=== PATIENT | male | born 1990 | race Caucasian/White ===

== ENCOUNTER 2018-02-17 00:13 | Emergency (ER) | payer BC ==
[2018-02-17 00:29] VITALS: BP 151/88; PULSE 78; RESP 20; TEMP 98.5; O2SAT 97
--- NOTE | 2018-02-17 00:47 | C.PDOC ---
History Of Present Illness 27 y/o male c/o right ear pain that started a few hours ago, pt used otc drops in ear and took one tab otc advil with no relief. no cough, fever, chills, throat pain. no discharge from ear, no change in hearing. pt reported left ear pain night before that resolved with otc drops; contrary to triage. pt denies being seen in another ed. Time Seen by Provider: 02/17/18 00:32 Chief Complaint (Nursing): ENT Problem History Per: Patient History/Exam Limitations: None Onset/Duration Of Symptoms: Hrs Current Symptoms Are (Timing): Still Present Quality (Ear): Pain W/Touch Past Medical History Reviewed: Historical Data, Nursing Documentation, Vital Signs Vital Signs: Last Vital Signs Temp 98.5 F 02/17/18 00:26 Pulse 78 02/17/18 00:26 Resp 20 02/17/18 00:26 BP 151/88 H 02/17/18 00:26 Pulse Ox 97 02/17/18 00:26 - Medical History PMH: No Chronic Diseases Surgical History: No Surg Hx Family History: States: Unknown Family Hx - Social History Hx Alcohol Use: No Hx Substance Use: No - Immunization History Hx Tetanus Toxoid Vaccination: No Review Of Systems Constitutional: Negative for: Fever, Chills ENT: Positive for: Ear Pain. Negative for: Ear Discharge, Nose Discharge, Mouth Pain, Mouth Swelling, Throat Pain, Throat Swelling Respiratory: Negative for: Cough Skin: Negative for: Rash Neurological: Negative for: Weakness, Numbness Physical Exam - Physical Exam Appears: Other (uncomforatble ) Skin: Warm, Dry Head: Atraumatic, Normacephalic Eye(s): bilateral: PERRL, EOMI Ear(s): Left: Normal, Right: TM Erythema Nose: No Discharge Oral Mucosa: Moist Throat: No Erythema, No Exudate Neck: Supple Lymphatic: No Adenopathy Chest: Symmetrical Cardiovascular: Rhythm Regular Respiratory: No Rales, No Rhonchi, No Wheezing Neurological/Psych: Oriented x3, Normal Speech, Normal Cognition ED Course And Treatment O2 Sat by Pulse Oximetry: 97 (RA) Pulse Ox Interpretation: Normal Medical Decision Making Medical Decision Making: +right otitis medial - amox and nsaids, d/c home. Disposition Counseled Patient/Family Regarding: Diagnosis, Need For Followup, Rx Given - Disposition Referrals: [facility] [Outside] Disposition: HOME/ ROUTINE Disposition Time: 00:55 Condition: GOOD Additional Instructions: Take antibiotics as prescribed. Ibuprofen as prescribed for pain. Follow up in medical clinic or with your primary care doctor next week. Prescriptions: Amoxicillin [Amoxil 500 mg Cap] 500 mg PO TID #21 cap Ibuprofen [Motrin] 600 mg PO TID #30 tab Instructions: Ear Infections (Otitis Media) (DC) Forms: [employer] (Colombian), General Discharge Instructions - Clinical Impression Clinical Impression: Otitis media - PA / ENOLOGIST / Resident Statement MD/DO has reviewed & agrees with the documentation as recorded. - Scribe Statement The provider has reviewed the documentation as recorded by the Scribe (Sue Aguila) All medical record entries made by the Scribe were at my direction and personally dictated by me. I have reviewed the chart and agree that the record accurately reflects my personal performance of the history, physical exam, medical decision making, and the department course for this patient. I have also personally directed, reviewed, and agree with the discharge instructions and disposition.
== END 2018-02-17 01:00 | disposition home or self-care (01) ==
LOC: C.ER 00:13
DX: H66.91 Otitis media, unspecified, right ear (principal)
CPT/HCPCS: 96372; 99283; J1885

== ENCOUNTER 2018-02-18 06:01 | Emergency (ER) | payer BC ==
--- NOTE | 2018-02-18 06:18 | C.PDOC ---
History Of Present Illness 27 year old male with a history of kidney stones presents to the emergency department with complaints of abdominal pain since the last few hours. Patient reports pain to his RUQ and right flank, and reports one episode of vomiting. P atient reports taking Motrin at home. He denies fever or other complaints. Of note, patient was treated in [facility] yesterday for otitis media, and is currently on Abx. <Benji Alfred - Last Filed: 02/20/18 13:48> <Lester Vickers Jr. - Last Filed: 02/18/18 10:30> History Per: Patient History/Exam Limitations: no limitations Onset/Duration Of Symptoms: Hrs Current Symptoms Are (Timing): Still Present Quality Of Discomfort: "Pain" Previous Symptoms: Other (kidney stones) <Benji Alfred - Last Filed: 02/20/18 13:48> Time Seen by Provider: 02/18/18 06:15 Chief Complaint (Nursing): Back Pain Past Medical History Vital Signs: Last Vital Signs Temp 98.8 F 02/18/18 07:20 Pulse 51 L 02/18/18 07:20 Resp 18 02/18/18 07:20 BP 152/106 H 02/18/18 07:20 Pulse Ox 100 02/18/18 07:20 <Lester Vickers Jr. - Last Filed: 02/18/18 10:30> Reviewed: Historical Data, Nursing Documentation, Vital Signs Vital Signs: Last Vital Signs Temp 98.4 F 02/18/18 06:10 Pulse 88 02/18/18 06:10 Resp 16 02/18/18 06:10 BP 162/101 H 02/18/18 06:10 Pulse Ox 98 02/18/18 06:10 - Medical History PMH: Kidney Stones Surgical History: No Surg Hx Family History: States: No Known Family Hx - Social History Hx Alcohol Use: No Hx Substance Use: No - Immunization History Hx Tetanus Toxoid Vaccination: No <Benji Alfred - Last Filed: 02/20/18 13:48> Review Of Systems Except As Marked, All Systems Reviewed And Found Negative. Constitutional: Negative for: Fever, Chills Gastrointestinal: Positive for: Abdominal Pain Musculoskeletal: Positive for: Back Pain <Benji Alfred - Last Filed: 02/20/18 13:48> Physical Exam - Physical Exam Appears: Non-toxic, No Acute Distress Skin: Warm, Dry Head: Atraumatic, Normacephalic Eye(s): bilateral: Normal Inspection, PERRL, EOMI Oral Mucosa: Moist Neck: Normal, Supple Chest: Symmetrical, No Tenderness Cardiovascular: Rhythm Regular, No Murmur Respiratory: No Rales, No Rhonchi, No Wheezing Gastrointestinal/Abdominal: Soft, Tenderness (RUQ tenderness), No Guarding, No Rebound Back: Other (right flank tenderness) Neurological/Psych: Oriented x3, Normal Speech, Normal Cognition <Benji Alfred - Last Filed: 02/20/18 13:48> ED Course And Treatment - Laboratory Results Result Diagrams: 02/18/18 06:37 02/18/18 06:37 <Lester Vickers Jr. - Last Filed: 02/18/18 10:30> - Laboratory Results Result Diagrams: 02/18/18 06:37 02/18/18 06:37 O2 Sat by Pulse Oximetry: 98 (RA) Pulse Ox Interpretation: Normal <Benji Alfred - Last Filed: 02/20/18 13:48> Medical Decision Making Medical Decision Making: Progress note(s): 7:56 AM - Pt s/o to me by overnight physician Dr. Benji Alfred. Pt is still c/o pain. On my exam, pt with right CVA tenderness. Differential diagnosis includes but is not limited to: kidney stone, biliary colic. I have ordered a CT scan. Will give pain medication (IV Toradol) and follow up CT result when completed. <Lester Vickers Jr. - Last Filed: 02/18/18 10:30> Medical Decision Making: renal colic vs biliary colic Plan: Chemistry Bloodwork CXR Protonix 40mg IVP NaCl IV Fluid Zofran 4mg IVP Urinalysis 700: pt endorsed to day shift pending results labs and imaging, reassess, final dispo. <Benji Alfred - Last Filed: 02/20/18 13:48> Disposition Counseled Patient/Family Regarding: Studies Performed, Diagnosis, Need For Followup - Disposition Disposition Time: 10:30 <Lester Vickers Jr. - Last Filed: 02/18/18 10:30> <Benji Alfred - Last Filed: 02/20/18 13:48> - Disposition Referrals: Juan Villa MD [Staff Provider] - Disposition: HOME/ ROUTINE Condition: IMPROVED Additional Instructions: Mr. Bonilla, thank you for letting us take care of you today. Return to the ER if your symptoms worsen, or if any problems. Take the medicine listed below as prescribed. Please call the phone number listed below to make an appointment with the physician (surgeon) Dr. Juan Villa so you can be re-evaluated. Avoid eating fatty foods. / Prescriptions: Acetaminophen with Codeine [Tylenol with Codeine #3 Tablet] 2 tab PO Q6 PRN #20 tablet PRN Reason: Pain, Severe (8-10) Naproxen [Anaprox DS] 1 tab PO Q12 PRN #20 tab PRN Reason: Pain, Moderate (4-7) Instructions: Gallstones (DC) Forms: [employer] (Croatian) Print Language: MONEGASQUE - Clinical Impression Clinical Impression: Cholelithiasis - Scribe Statement The provider has reviewed the documentation as recorded by the Scribe (Nitin Gomez) Provider Attestation: All medical record entries made by the Scribe were at my direction and personally dictated by me. I have reviewed the chart and agree that the record accurately reflects my personal performance of the history, physical exam, medical decision making, and the department course for this patient. I have also personally directed, reviewed, and agree with the discharge instructions and disposition. <Benji Alfred - Last Filed: 02/20/18 13:48>
[2018-02-18] MEDS ORDERED: Sodium Chloride 0.9% 1,000 ML IV ONE (06:28)
[2018-02-18] MEDS ORDERED: Sodium Chloride 0.9% 1,000 ML ONE (06:38)
[2018-02-18 06:44] LABS: BASO # 0.1 K/uL (0.0-0.2); BASO % 0.5 % (0.0-2.0); EOS # 0.1 K/uL (0.0-0.7); EOS % 0.6 % (0.0-4.0); HEMOGLOBIN 14.6 g/dL (12.0-18.0); LYMPH # 2.1 K/uL (1.0-4.3); LYMPH % 18.5 % (20.0-40.0); MEAN CELL VOLUME 78.8 fL (80.0-94.0); MEAN CORPUSCULAR HEMOGLOBIN 27.6 pg (27.0-31.0); MEAN PLATELET VOLUME 8.9 fL (7.2-11.7); MONO # 0.8 K/uL (0.0-0.8); MONO % 7.2 % (0.0-10.0); NEUT # 8.4 K/uL (1.8-7.0); NEUT % 73.2 % (50.0-75.0); NRBC % 0.1 % (0.0-2.0); RBC 5.28 Mil/uL (4.40-5.90); RED CELL DISTRIBUTION WIDTH 13.6 % (11.5-14.5); WHITE BLOOD COUNT 11.5 K/uL (4.8-10.8)
[2018-02-18 06:57] LABS: ALB/GLOB RATIO 1.4 (1.0-2.1); ALBUMIN 4.6 g/dL (3.5-5.0); ALT/SGPT 39 U/L (21-72); AST/SGOT 19 U/L (17-59); BILIRUBIN,DIRECT 0.4 mg/dL (0.0-0.4); BLOOD UREA NITROGEN 7 mg/dL (9-20); CALCIUM 9.6 mg/dl (8.6-10.4); GFR NON-AFRICAN AMERICAN > 60; LIPASE 60 U/L (23-300)
[2018-02-18 07:00] LABS: INR 1.2; PROTHROMBIN TIME 12.6 SECONDS (9.7-12.2)
[2018-02-18 07:33] VITALS: TEMP 98.8
[2018-02-18 08:25] LABS: URINE BILIRUBIN NEGATIVE (NEGATIVE); URINE BLOOD NEGATIVE (NEGATIVE); URINE CLARITY Clear (Clear); URINE COLOR Straw (YELLOW); URINE GLUCOSE (UA) NORMAL (Normal); URINE LEUKOCYTE ESTERASE NEG Leu/uL (Negative); URINE PROTEIN NEGATIVE (NEGATIVE); URINE UROBILINOGEN NORMAL mg/dL (0.2-1.0)
--- NOTE | 2018-02-18 09:13 | RAD ---
Date of service: 02/18/2018 HISTORY: abd pain COMPARISON: No prior. FINDINGS: LUNGS: No active pulmonary disease. PLEURA: No significant pleural effusion identified, no pneumothorax apparent. CARDIOVASCULAR: No aortic atherosclerotic calcification present. Normal cardiac size. No pulmonary vascular congestion. OSSEOUS STRUCTURES: No significant abnormalities. VISUALIZED UPPER ABDOMEN: Normal. OTHER FINDINGS: None. IMPRESSION: No acute cardiopulmonary disease appreciated.
[2018-02-18] MEDS ORDERED: Morphine 4 MG/ML VIAL ONE (09:28)
--- NOTE | 2018-02-18 10:19 | CT ---
Date of service: 02/18/2018 PROCEDURE: CT Abdomen and Pelvis without intravenous contrast HISTORY: Right flank pain RUQ pain COMPARISON: None. TECHNIQUE: Helical CT of the abdomen and pelvis was performed without oral or intravenous contrast as per referring physician request. Coronal and sagittal reformats were generated. Contrast dose: None Radiation dose: Total exam DLP = 1110.97 mGy-cm. This CT exam was performed using one or more of the following dose reduction techniques: Automated exposure control, adjustment of the mA and/or kV according to patient size, and/or use of iterative reconstruction technique. FINDINGS: LOWER THORAX: Trace alveolitis left lower lobe with the bases otherwise unremarkable bilaterally. LIVER: Unremarkable. No gross lesion or ductal dilatation. GALLBLADDER AND BILE DUCTS: No calcium is identified layering within the dependent gallbladder lumen with cholelithiasis likely silhouetted. PANCREAS: Unremarkable. No gross lesion or ductal dilatation. SPLEEN: Unremarkable. ADRENALS: Unremarkable. No mass. KIDNEYS AND URETERS: Punctate intrarenal calculi identified at the bilateral kidneys, right greater than left but with no definite obstructive uropathy appreciated the bilateral ureters are normal in caliber throughout, without associated radiodense urolithiasis. Urinary bladder is mild to mildly distended without significant mural thickening or associated urolithiasis in the lumen. VASCULATURE: Unremarkable. No aortic aneurysm. No aortic atherosclerotic calcification or mural plaque present. BOWEL: Few sigmoid diverticular identified as well as numerous at the sigmoid colon. No evidence to suggest diverticulitis nevertheless. No bowel obstruction or free intra peritoneal gas collection. The stomach is collapsed not well evaluated. APPENDIX: Unremarkable. Normal appendix. PERITONEUM: Unremarkable. No free fluid. No free air. LYMPH NODES: Unremarkable. No enlarged lymph nodes. BLADDER: Unremarkable. REPRODUCTIVE: Unremarkable. BONES: No acute fracture. OTHER FINDINGS: None. IMPRESSION: 1. Cholelithiasis and milk of calcium identified in the gallbladder lumen mildly. No mural thickening, prominent distention or pericholecystic fluid collections appreciate that would suggest acute cholecystitis at this time. 2. Cecal and sigmoid diverticular changes without acute inflammation. 3. Bilateral intrarenal calculi, right greater than left kidney but no definite obstructive uropathy appreciated bilaterally.
[2018-02-18 10:50] VITALS: BP 160/85; PULSE 64; RESP 16; O2SAT 98
== END 2018-02-18 10:49 | disposition home or self-care (01) ==
LOC: C.ER 06:01
DX: K80.20 Calculus of gallbladder without cholecystitis without obstruction (principal); Z87.442 Personal history of urinary calculi
CPT/HCPCS: 71045; 74176; 80053; 81001; 82248; 83690; 85025; 85610; 85730; 96361; 96374; 96375; 99285; C9113; J1885; J2270; J2405; J7030